=== PATIENT | male | born 1970 | race African-American/Black ===

== ENCOUNTER 2023-03-18 19:13 | Emergency (ER) | payer MEDICAID, OTHER ==
[~2023-03-18] VITALS: Ht 185.4 cm; Wt 128.5 kg
[2023-03-18 19:41] VITALS: O2SAT 100
[2023-03-18] MEDS ORDERED: IBUPROFEN 800MG TABLET PO ONE (20:15)
[2023-03-18] MEDS ORDERED: CYCLOBENZAPRINE 10MG TABLET PO ONE (20:15)
[2023-03-18] MEDS ORDERED: IBUPROFEN 400MG TABLET PO NR (20:15)
[2023-03-18 20:42] VITALS: BP 177/86
[2023-03-18] MEDS ORDERED: CYCL10TA21 MT (21:41)
[2023-03-18] MEDS ORDERED: ACET-2708 MT (21:41)
[2023-03-18 21:53] VITALS: PULSE 63; RESP 16; TEMP 98
== END 2023-03-18 21:54 | disposition home or self-care (01) ==
LOC: ER 19:13
DX: S70.02XA Contusion of left hip, initial encounter (principal); M54.9 Dorsalgia, unspecified; W18.39XA Other fall on same level, initial encounter; Y93.89 Activity, other specified; Y92.89 Other specified places as the place of occurrence of the external cause; Y99.8 Other external cause status
CPT/HCPCS: 73502; 99283

== ENCOUNTER 2024-02-04 13:17 | Emergency (ER) | payer MEDICAID ==
[~2024-02-04] VITALS: Ht 185.4 cm; Wt 129.0 kg
[~2024-02-04 13:17] MED LIST: ACET-2708 MT; CYCL10TA21 MT
[2024-02-04 13:48] VITALS: BP 187/94; PULSE 70; RESP 18; TEMP 98.2; O2SAT 100
[2024-02-04] MEDS ORDERED: ACET-2708 PO (16:16)
== END 2024-02-04 17:59 | disposition home or self-care (01) ==
LOC: ER 13:25
DX: S62.635A Displaced fracture of distal phalanx of left ring finger, initial encounter for closed fracture (principal); X58.XXXA Exposure to other specified factors, initial encounter; Y93.89 Activity, other specified; Y92.89 Other specified places as the place of occurrence of the external cause; Y99.8 Other external cause status
CPT/HCPCS: 73140; 99283

== ENCOUNTER 2024-03-19 17:18 | Emergency (ER) | payer MEDICAID ==
[~2024-03-19] VITALS: Ht 188 cm; Wt 133.0 kg
[~2024-03-19 17:18] MED LIST changes: +ACET-2708 PO
[2024-03-19 17:23] VITALS: O2SAT 99
[2024-03-19] MEDS ORDERED: TETANUS, DIPHTHERIA, PERTUSSIS VAC/PF 0.5ML (>10YR OLD) IM ONE (19:00)
[2024-03-19] MEDS: TETANUS, DIPHTHERIA, PERTUSSIS VAC/PF 0.5ML (>10YR OLD) IM ONE (21:58)
[2024-03-19 23:41] VITALS: BP 159/94; PULSE 90; RESP 20; TEMP 37.16964; O2SAT 100
== END 2024-03-19 23:44 | disposition home or self-care (01) ==
LOC: ER 17:18
DX: S82.434A Nondisplaced oblique fracture of shaft of right fibula, initial encounter for closed fracture (principal); I10 Essential (primary) hypertension; X58.XXXA Exposure to other specified factors, initial encounter; Y93.89 Activity, other specified; Y92.89 Other specified places as the place of occurrence of the external cause; Y99.8 Other external cause status
CPT/HCPCS: 73562; 73610; 90715; 29505; 90471; 99284; Z7610